=== PATIENT | female | born 1990 | race Caucasian/White ===

== ENCOUNTER 2021-08-03 08:27 | Emergency (ER) | payer OTHER, SELFPAY ==
--- NOTE | ~2021-08-03 | CT_ITS ---
EXAMINATION: CT ABDOMEN AND PELVIS WITHOUT CONTRAST CLINICAL INFORMATION: Right flank pain COMPARISON: None TECHNIQUE: Multidetector volumetric imaging was performed from the superior aspect of the liver through the pubic symphysis. Sagittal and coronal reformatted images were obtained on the technologist's workstation. This CT examination was performed using dose optimization techniques as appropriate, variously including the following: *Automated exposure control *Adjustment of mA and/or kV according to patient size (this includes techniques or standardized protocols for targeted exams where dose is matched to indication/reason for exam; i.e. extremities or head) *Use of iterative reconstruction technique DLP: 501 mGy-cm FINDINGS: LUNG BASES: The visualized lung bases are unremarkable. LIVER, GALLBLADDER, AND BILIARY TREE: The liver is normal in size, shape, and attenuation. No focal hepatic lesion or biliary ductal dilatation is present. The gallbladder is unremarkable with no evidence of radiopaque gallstones, gallbladder wall thickening, or obvious pericholecystic inflammatory changes. PANCREAS: Unremarkable. SPLEEN: Unremarkable. ADRENAL GLANDS: Unremarkable. KIDNEYS AND URETERS: There is mild right hydronephrosis. There is a small nonobstructing 1 to 2 mm right mid to lower pole renal stone. There is mild right ureteral dilatation from a 2 mm right distal ureteral stone. There is a small amount of right perinephric fluid. The left kidney is normal. BLADDER: Unremarkable. GASTROINTESTINAL TRACT: The small and large bowel are unremarkable. The appendix is unremarkable. ABDOMINAL WALL: No significant hernia is appreciated. LYMPH NODES: Normal. VASCULAR: Unremarkable. PELVIC VISCERA: Unremarkable. OSSEOUS STRUCTURES: Unremarkable. CT/CT abdomen pelvis wo con IMPRESSION: Small right renal stone. Mild right hydronephrosis and ureteral dilatation from a 2 mm right distal ureteral stone.
--- NOTE | 2021-08-03 08:42 | ED_ITS ---
HPI - Abdominal Pain General Stated Complaint: ABD PAIN Time Seen by Provider: 08/03/21 08:42 Source: patient Mode of arrival: ambulatory Limitations: no limitations History of Present Illness MD elicited complaint: abdominal pain and flank pain Pertinent past history: none Onset (ago): hour(s) (2) Pain Consistency: constant Location: R flank Severity: moderate Quality: stabbing Radiation: none Migration to: no migration Exacerbating factors: nothing Relieving factors: nothing Associated symptoms: nausea and diarrhea Treatments prior to arrival: other (tried gas x) Related Data Previous Rx's Medication Instructions Recorded morphine 15 mg immediate release 15 mg PO Q6H PRN 3 Days #12 tab 08/03/21 tablet ondansetron 4 mg disintegrating 4 mg PO Q8H PRN #20 tab 08/03/21 tablet prednisone 20 mg tablet 40 mg PO DAILY 5 Days #10 tab 08/03/21 tamsulosin 0.4 mg capsule 0.4 mg PO DAILY 5 Days #5 cap 08/03/21 Allergies Allergy/AdvReac Type Severity Reaction Status Date / Time lactose AdvReac Intermediate Abdominal Verified 08/03/21 08:54 Pain Review of Systems Review of Systems Constitutional : No Weight loss, No Fever, No Chills ENT/Mouth : No sore throat, No Rhinorrhea Eyes: No Swelling, No Redness Cardiovascular : No Chest Pain, No SOB, NoEdema Respiratory : No Cough, No Sputum, No Wheezing Gastrointestinal : Positive Nausea, no Vomiting, positive Diarrhea, positive abdominal Pain, No Hematochezia, No Melena Genitourinary : No Dysuria, No Urinary Frequency, No Hematuria, No Urgency Musculoskeletal : No joint pain, No Myalgias, No Joint Swelling Skin : No Skin Lesions, No rash Neuro : No Weakness, No Numbness, No Dizziness, No Headache Psych : No Anxiety/Panic, No Depression Heme/Lymph: No Bruising, No Lymphadenopathy Endocrine : No Polyuria, No Polydipsia All other systems reviewed and are negative. Physical Exam Vital Signs: Vital Signs: Last Vital Signs Temp 98.1 F 08/03/21 08:56 Pulse 53 08/03/21 08:56 Resp 16 08/03/21 08:56 Pulse Ox 98 08/03/21 08:56 Body Mass Index 27.1 Appearance: Alert. Oriented X3. Anxious in pain mild acute distress Eyes: Pupils equal, round and reactive to light. ENT: Pharynx normal. Neck: Normal inspection. Neck supple. CVS: Normal heart rate and rhythm. Pulses normal. Respiratory: No respiratory distress. Breath sounds normal. Abdomen: Soft and mild R flank ttp no rebound or guarding Skin: Skin warm and dry. pale skin color. Normal skin turgor. Extremities: No lower extremity edema. No calf ttp Neuro: Oriented X 3. No motor deficit. No sensory deficit. Course Course Course Narrative: feels better stable for DC MDM - Abdominal Pain MDM Narrative Medical decision making narrative: 30 yo female with lactose intolerance comes in with nausea and R flank pain - dad has hx of kidney stones, at this time labs, CT scan for renal colic ordered, UA/UPT, IVF, IV toradol and morphine for pain Lab Data Result diagrams: 08/03/21 09:09 08/03/21 09:09 Labs: Lab Results 08/03/21 08/03/21 08/03/21 Range/Units 09:09 09:09 09:09 WBC 8.7 (4.8-10.8) X10*3/uL RBC 4.23 (4.20-5.50) X10*6/uL Hgb 12.5 (12.0-16.0) g/dl Hct 37.1 (37-47) % MCV 87.7 (80-98) fL MCH 29.6 (27.0-33.0) pg MCHC 33.7 (31.0-35.0) g/dl RDW 12.8 (11.0-16.0) % Plt Count 347 (160-400) X10*3/uL MPV 9.7 (9.4-12.3) fL Immature Gran % (Auto) 0.3 (0.0-0.4) % Neut % (Auto) 79.7 H (45-73) % Lymph % (Auto) 14.7 L (20-40) % [place] % (Auto) 4.3 (2-11) % Eos % (Auto) 0.7 (0-4) % Baso % (Auto) 0.3 (0-2) % Lymph # (Auto) 1.3 (1.2-4.9) X10*3/uL [place] # (Auto) 0.4 (0.1-1.2) X10*3/uL Eos # (Auto) 0.1 (0.0-0.4) X10*3/uL Baso # (Auto) 0.0 (0.0-0.2) X10*3/uL Abs Immat Gran (auto) 0.03 (0.00-0.03) X10*3/uL Absolute Neuts (auto) 6.9 (2.0-8.3) X10*3/uL Absolute Nucleated RBC 0.000 (0.0-0.012) X10*3/uL Nucleated RBC % (auto) 0.0 (0.0-0.2) /100WBC Sodium 141 (135-145) mmol/L Potassium 3.9 (3.3-5.1) mmol/L Chloride 110 H (96-108) mmol/L Carbon Dioxide 21 L (22-29) mmol/L Anion Gap 14 (12-20) BUN 10 (9-16) mg/dL Creatinine 0.82 (0.5-1.4) mg/dL Estim Creat Clear Calc 91.7 Estimated GFR > 60 Random Glucose 116 H (60-115) mg/dL Calcium 9.4 (8.4-10.2) mg/dL Magnesium (1.6-2.6) mg/dL Total Bilirubin (0.0-1.0) mg/dL Direct Bilirubin (0.0-0.5) mg/dL AST (5-31) U/L ALT (0-31) U/L Alkaline Phosphatase (39-117) U/L Total Protein (6.5-8.0) g/dL Albumin (3.5-5.0) g/dL Lipase (8-78) U/L Urine Color Urine Appearance Urine pH (5.0-8.0) Ur Specific [place] (1.005-1.025) Urine Protein (NEG-TRACE) MG/DL Urine Glucose (UA) (NEG) MG/DL Urine Ketones (NEG) MG/DL Urine Blood (NEG) Urine Nitrite (NEG) Ur Leukocyte Esterase (NEG) Urine RBC (0) /HPF Urine WBC (0-4) /HPF Ur Squamous Epith Cells /LPF Amorphous Sediment /LPF Urine Bacteria /LPF Urine Test (NEGATIVE) COVID-19 (VAIBHAV) Negative (Negative) COVID-19 Clin Com See Note 08/03/21 08/03/21 08/03/21 Range/Units 09:09 09:09 09:09 WBC (4.8-10.8) X10*3/uL RBC (4.20-5.50) X10*6/uL Hgb (12.0-16.0) g/dl Hct (37-47) % MCV (80-98) fL MCH (27.0-33.0) pg MCHC (31.0-35.0) g/dl RDW (11.0-16.0) % Plt Count (160-400) X10*3/uL MPV (9.4-12.3) fL Immature Gran % (Auto) (0.0-0.4) % Neut % (Auto) (45-73) % Lymph % (Auto) (20-40) % [place] % (Auto) (2-11) % Eos % (Auto) (0-4) % Baso % (Auto) (0-2) % Lymph # (Auto) (1.2-4.9) X10*3/uL [place] # (Auto) (0.1-1.2) X10*3/uL Eos # (Auto) (0.0-0.4) X10*3/uL Baso # (Auto) (0.0-0.2) X10*3/uL Abs Immat Gran (auto) (0.00-0.03) X10*3/uL Absolute Neuts (auto) (2.0-8.3) X10*3/uL Absolute Nucleated RBC (0.0-0.012) X10*3/uL Nucleated RBC % (auto) (0.0-0.2) /100WBC Sodium (135-145) mmol/L Potassium (3.3-5.1) mmol/L Chloride (96-108) mmol/L Carbon Dioxide (22-29) mmol/L Anion Gap (12-20) BUN (9-16) mg/dL Creatinine (0.5-1.4) mg/dL Estim Creat Clear Calc Estimated GFR Random Glucose (60-115) mg/dL Calcium (8.4-10.2) mg/dL Magnesium 1.8 (1.6-2.6) mg/dL Total Bilirubin 0.4 (0.0-1.0) mg/dL Direct Bilirubin < 0.2 (0.0-0.5) mg/dL AST 18 (5-31) U/L ALT 16 (0-31) U/L Alkaline Phosphatase 45 (39-117) U/L Total Protein 6.6 (6.5-8.0) g/dL Albumin 4.2 (3.5-5.0) g/dL Lipase 24 (8-78) U/L Urine Color YELLOW Urine Appearance CLEAR Urine pH 6.5 (5.0-8.0) Ur Specific [place] 1.025 (1.005-1.025) Urine Protein TRACE (NEG-TRACE) MG/DL Urine Glucose (UA) NEG (NEG) MG/DL Urine Ketones NEG (NEG) MG/DL Urine Blood 3+ H (NEG) Urine Nitrite NEG (NEG) Ur Leukocyte Esterase NEG (NEG) Urine RBC 15-29 H (0) /HPF Urine WBC 0-2 (0-4) /HPF Ur Squamous Epith Cells 2+ /LPF Amorphous Sediment 1+ /LPF Urine Bacteria NONE /LPF Urine Test NEGATIVE (NEGATIVE) COVID-19 (VAIBHAV) (Negative) COVID-19 Clin Com Discharge Plan Discharge Clinical Impression: Ureterolithiasis Patient Disposition: Home, Self-Care Instructions: Ureteral Stones (ED) Additional Instructions: return to ED for any worsening symptoms or concerns Prescriptions: New prednisone 20 mg tablet 40 mg PO DAILY 5 Days Qty: 10 RF: 0 tamsulosin 0.4 mg capsule 0.4 mg PO DAILY 5 Days Qty: 5 RF: 0 morphine 15 mg tablet 15 mg PO Q6H PRN (Reason: pain) 3 Days Qty: 12 RF: 0 ondansetron 4 mg tablet,disintegrating 4 mg PO Q8H PRN (Reason: nausea and vomiting) Qty: 20 RF: 0 Referrals: Torrey Ocampo MD [Physician] - 3 days Stand Alone Forms: Work/School Release [facility] Past Medical History Attestation statement: The following information was validated with the patient. Medical History (Updated 08/03/21 @ 11:21 by Natalie Barron DO) Asthma Lactose intolerance Social History Social History (Updated 08/03/21 @ 08:57 by Natalie Barron DO) Patient Tobacco Use Status: Never used Tobacco Use of substances other than those prescribed or required for medical reasons: No Advance Directives: No
[2021-08-03 08:56] VITALS: PULSE 53; RESP 16; TEMP 36.7; O2SAT 98; BMI 27.1
[2021-08-03] MEDS: Ketorolac Tromethamine 15 MG/ML VIAL IVPUSH (09:13)
[2021-08-03 09:14] LABS: MANUAL DIFF FLAG NO
[2021-08-03] MEDS: ondansetron HCL 4 MG/2 ML VIAL IVPUSH (09:14)
[2021-08-03] MEDS: Morphine Sulfate 4 MG/ML CARTRIDGE IVPUSH (09:14)
[2021-08-03] MEDS: 0.9 % Sodium Chloride 1,000 ML 999 ML IVCONT (09:14)
[2021-08-03 09:16] LABS: Basophils Percent Auto 0.3 % (0-2); Eosinophils Absolute Auto 0.1 X10*3/uL (0.0-0.4); Eosinophils Percent Auto 0.7 % (0-4); Hematocrit 37.1 % (37-47); Hemoglobin 12.5 g/dl (12.0-16.0); Imm Gran Abs Auto 0.03 X10*3/uL (0.00-0.03); Imm Gran Pct Auto 0.3 % (0.0-0.4); Lymphocytes Absolute Auto 1.3 X10*3/uL (1.2-4.9); Lymphocytes Percent Auto 14.7 % (20-40); Mean Corpuscular HGB Conc 33.7 g/dl (31.0-35.0); Mean Corpuscular Hemoglobin 29.6 pg (27.0-33.0); Mean Corpuscular Volume 87.7 fL (80-98); Mean Platelet Volume 9.7 fL (9.4-12.3); Monocytes Absolute Auto 0.4 X10*3/uL (0.1-1.2); Monocytes Percent Auto 4.3 % (2-11); Neutrophils Absolute Auto 6.9 X10*3/uL (2.0-8.3); Neutrophils Percent Auto 79.7 % (45-73); Platelet Count 347 X10*3/uL (160-400); Red Blood Count 4.23 X10*6/uL (4.20-5.50); Red Cell Distribution Width 12.8 % (11.0-16.0); White Blood Count 8.7 X10*3/uL (4.8-10.8)
[2021-08-03 09:22] LABS: Appearance Urine CLEAR; Color Urine YELLOW; Glucose Urine UA NEG (NEG); PH 6.5 (5.0-8.0); UPreg QC Valid YES; Urine Pregnancy NEGATIVE (NEGATIVE)
[2021-08-03 09:23] LABS: Leukocyte Esterase Urine NEG (NEG); Nitrite Urine NEG (NEG); Specific Gravity - Urine 1.025 (1.005-1.025); UACC Culture Trigger NO; Urine Blood 3+ (NEG); Urine Ketones NEG (NEG); Urine Protein TRACE MG/DL (NEG-TRACE)
[2021-08-03 09:27] LABS: WBC Urine 0-2 /HPF (0-4)
[2021-08-03 09:28] LABS: Amorphous Sediment Urine 1+ /LPF; Squamous Epithelial Cell Urine 2+ /LPF
[2021-08-03 09:32] LABS: Anion Gap 14 (12-20); Blood Urea Nitrogen 10 mg/dL (9-16); COVID-19 Test Negative (Negative); Calcium 9.4 mg/dL (8.4-10.2); Carbon Dioxide 21 mmol/L (22-29); Chloride 110 mmol/L (96-108); Creatinine Clr Calc Pharmacy 91.7; Estimated Glomerular Filt Rate > 60; Glucose Random 116 mg/dL (60-115); Potassium 3.9 mmol/L (3.3-5.1); Sodium 141 mmol/L (135-145)
[2021-08-03 09:34] LABS: Alanine Aminotransferase 16 U/L (0-31); Albumin Level 4.2 g/dL (3.5-5.0); Alkaline Phosphatase 45 U/L (39-117); Aspartate Amino Transferase 18 U/L (5-31); Bilirubin Direct < 0.2 mg/dL (0.0-0.5); Bilirubin Total 0.4 mg/dL (0.0-1.0); Lipase 24 U/L (8-78); Magnesium 1.8 mg/dL (1.6-2.6); Total Protein 6.6 g/dL (6.5-8.0)
[2021-08-03 10:55] VITALS: PULSE 53; RESP 16; TEMP 36.7
[2021-08-03] MEDS: Tamsulosin HCL 0.4 MG CAPSULE PO (11:53)
[2021-08-03] MEDS: methylPREDNISolone Sod Succ 125 MG/2 ML VIAL 60 MG IVPUSH (11:53)
[2021-08-03 12:00] VITALS: BP 124/66; PULSE 53
== END 2021-08-03 12:03 | disposition home or self-care (01) ==
PROVIDERS: Emergency Provider Emergency Medicine
DX: N20.1 Calculus of ureter (principal); R10.9 Unspecified abdominal pain; Z20.822 Contact with and (suspected) exposure to COVID-19; Z79.899 Other long term (current) drug therapy
CPT/HCPCS: 36415; 74176; 80048; 80076; 81001; 81025; 83690; 83735; 85025; 87635; 96361; 96374; 96375; 99284; J1885; J2270; J2405; J2930

== ENCOUNTER 2021-08-24 21:39 | Emergency (ER) | payer OTHER, SELFPAY ==
--- NOTE | ~2021-08-24 | CT_ITS ---
EXAMINATION: CT ABDOMEN AND PELVIS WITHOUT CONTRAST CLINICAL INFORMATION: Right flank pain. COMPARISON: CT abdomen/pelvis dated from 08/03/2021. TECHNIQUE: Multidetector volumetric imaging was performed from the superior aspect of the liver through the pubic symphysis. Sagittal and coronal reformatted images were obtained on the technologist's workstation. This CT examination was performed using dose optimization techniques as appropriate, variously including the following: *Automated exposure control *Adjustment of mA and/or kV according to patient size (this includes techniques or standardized protocols for targeted exams where dose is matched to indication/reason for exam; i.e. extremities or head) *Use of iterative reconstruction technique DLP: 491 mGy-cm FINDINGS: LUNG BASES: The visualized lung bases are unremarkable. LIVER, GALLBLADDER, AND BILIARY TREE: The liver is normal in size, shape, and attenuation. No focal hepatic lesion or biliary ductal dilatation is present. The gallbladder is unremarkable with no evidence of radiopaque gallstones, gallbladder wall thickening, or obvious pericholecystic inflammatory changes. PANCREAS: Unremarkable. SPLEEN: Unremarkable. ADRENAL GLANDS: Unremarkable. KIDNEYS AND URETERS: Redemonstration of a 2 mm stone in the distal right ureter (79:3) with unchanged mild right hydroureteronephrosis. A punctate stone in the mid pole the right kidney is less apparent in this study (50:7). Again noted is a subtle hypodensity in the lateral surface of the mid pole the right kidney (49:7) which statistically is likely to represent a simple cyst. No new renal calculi. No left hydronephrosis. No perinephric fat stranding. BLADDER: Underdistended and therefore suboptimally evaluated. GASTROINTESTINAL TRACT: The small and large bowel are unremarkable. The appendix is unremarkable. ABDOMINAL WALL: No significant hernia is appreciated. LYMPH NODES: No lymphadenopathy. VASCULAR: Unremarkable. PELVIC VISCERA: Unremarkable. OSSEOUS STRUCTURES: No acute or aggressive osseous abnormalities. CT/CT abdomen pelvis wo con IMPRESSION: Unchanged mild right hydronephrosis from a stable 2 mm right distal ureteral stone. A punctate stone in the mid pole of the right kidney is also unchanged.
[2021-08-24 22:12] VITALS: BP 131/52; PULSE 88; RESP 18; TEMP 36.9; O2SAT 100; BMI 28.2
[2021-08-24 23:27] LABS: Basophils Percent Auto 0.5 % (0-2); Eosinophils Absolute Auto 0.1 X10*3/uL (0.0-0.4); Eosinophils Percent Auto 1.8 % (0-4); Hematocrit 37.9 % (37-47); Hemoglobin 12.5 g/dl (12.0-16.0); Imm Gran Abs Auto 0.02 X10*3/uL (0.00-0.03); Imm Gran Pct Auto 0.3 % (0.0-0.4); Lymphocytes Absolute Auto 1.6 X10*3/uL (1.2-4.9); Lymphocytes Percent Auto 20.3 % (20-40); MANUAL DIFF FLAG NO; Mean Corpuscular Hemoglobin 29.3 pg (27.0-33.0); Mean Platelet Volume 9.7 fL (9.4-12.3); Monocytes Absolute Auto 0.5 X10*3/uL (0.1-1.2); Monocytes Percent Auto 6.3 % (2-11); Neutrophils Absolute Auto 5.6 X10*3/uL (2.0-8.3); Neutrophils Percent Auto 70.8 % (45-73); Platelet Count 342 X10*3/uL (160-400); Red Blood Count 4.26 X10*6/uL (4.20-5.50); Red Cell Distribution Width 12.8 % (11.0-16.0); White Blood Count 7.9 X10*3/uL (4.8-10.8)
[2021-08-24 23:31] LABS: Appearance Urine CLEAR; Color Urine STRAW; Glucose Urine UA NEG (NEG); Leukocyte Esterase Urine NEG (NEG); Nitrite Urine NEG (NEG); Specific Gravity - Urine <= 1.005 (1.005-1.025); UACC Culture Trigger NO; UPreg QC Valid YES; Urine Blood 1+ (NEG); Urine Ketones NEG (NEG); Urine Pregnancy NEGATIVE (NEGATIVE); Urine Protein NEG (NEG-TRACE)
--- NOTE | 2021-08-24 23:36 | ED_ITS ---
HPI - Female Genitourinary General Chief complaint: Urogenital-Female Stated complaint: Vaginal discomfort Time Seen by Provider: 08/24/21 23:34 History of Present Illness HPI Narrative: Patient is a 30-year-old female presented today with having pain on urination. Pain in the right flank area. Similar to previous bouts of kidney stone. Patient had a diagnosis of kidney stone on August 03. Has not been able to trap the stone. She was told she had a small stone that is distal. She is given Flomax pain medication. Was initially getting better. Over the last 24 hours been having pain again. Also noted burning sensation when she urinates. Patient claims she has not been sexually active in the last month. Her menstruation has been regular. She did not miss her menstruation. No vomiting. No diarrhea. No bloody stool. Patient is from home. Related Data Previous Rx's Medication Instructions Recorded morphine 15 mg immediate release 15 mg PO Q6H PRN 3 Days #12 tab 08/03/21 tablet ondansetron 4 mg disintegrating 4 mg PO Q8H PRN #20 tab 08/03/21 tablet prednisone 20 mg tablet 40 mg PO DAILY 5 Days #10 tab 08/03/21 tamsulosin 0.4 mg capsule 0.4 mg PO DAILY 5 Days #5 cap 08/03/21 Allergies Allergy/AdvReac Type Severity Reaction Status Date / Time lactose AdvReac Intermediate Abdominal Verified 08/03/21 08:54 Pain Review of Systems Review of Systems: No fever no chills no chest pain or shortness breath no diaphoresis No cough no congestion or upper respiratory symptoms All system review otherwise negative [facility] Past Medical History Medical History Asthma Lactose intolerance Social History Social History Patient Tobacco Use Status: Never used Tobacco Use of substances other than those prescribed or required for medical reasons: No Advance Directives: No Patient : No Physical Exam Vital Signs: Vital Signs: Last Vital Signs Temp 98.4 F 08/24/21 22:12 Pulse 88 08/24/21 22:12 Resp 18 08/24/21 22:12 BP 131/52 L 08/24/21 22:12 Pulse Ox 100 08/24/21 22:12 Body Mass Index 28.2 Appearance: Alert. Oriented X3. No acute distress. Eyes: Pupils equal, round and reactive to light. ENT: Pharynx normal. Neck: Normal inspection. Neck supple. No lymph nodes noted. No crepitus CVS: Normal heart rate and rhythm. Pulses normal. Normal S1 and S2 Respiratory: No respiratory distress. Breath sounds normal. No Wheezing. No rales Abdomen: Soft and nontender. No rigidity. No distention. good BS x4 Skin: Skin warm and dry. Normal skin color. Normal skin turgor. Extremities: No lower extremity edema. Neurovascular intact to all extremities. No Lacerations. No Rash Neuro: Oriented X 3. No motor deficit. No sensory deficit. Moving all extermities. No slurred speech MDM - Female Genitourinary MDM Narrative Medical decision making narrative: Urine showed no gross evidence of infection. test was negative. Electrolytes were normal. Repeat CT scan was done as patient continued to have flank pain. The CT showed a 2 mm stone distal almost in the same location in the right ureter. Likely causing patient's symptoms. Will have patient try Motrin again. Close follow-up with Urology this time. Explained to patient risk of losing her kidney if it continued to be blocked. She needs close follow-up with Urology. This kidney stone has not moved since August 03. She is currently in stable condition pain is controlled. Kidney function is normal. No urinary tract infection. In stable condition. Medical Records Attestation: I reviewed the patient's medical records. Lab Data Attestation: I reviewed the patient's lab results. Result diagrams: 08/24/21 23:23 08/24/21 23:22 Labs: Lab Results 08/24/21 08/24/21 08/24/21 Range/Units 22:57 22:57 23:22 WBC (4.8-10.8) X10*3/uL RBC (4.20-5.50) X10*6/uL Hgb (12.0-16.0) g/dl Hct (37-47) % MCV (80-98) fL MCH (27.0-33.0) pg MCHC (31.0-35.0) g/dl RDW (11.0-16.0) % Plt Count (160-400) X10*3/uL MPV (9.4-12.3) fL Immature Gran % (Auto) (0.0-0.4) % Neut % (Auto) (45-73) % Lymph % (Auto) (20-40) % [place] % (Auto) (2-11) % Eos % (Auto) (0-4) % Baso % (Auto) (0-2) % Lymph # (Auto) (1.2-4.9) X10*3/uL [place] # (Auto) (0.1-1.2) X10*3/uL Eos # (Auto) (0.0-0.4) X10*3/uL Baso # (Auto) (0.0-0.2) X10*3/uL Abs Immat Gran (auto) (0.00-0.03) X10*3/uL Absolute Neuts (auto) (2.0-8.3) X10*3/uL Absolute Nucleated RBC (0.0-0.012) X10*3/uL Nucleated RBC % (auto) (0.0-0.2) /100WBC Sodium 141 (135-145) mmol/L Potassium 4.2 (3.3-5.1) mmol/L Chloride 108 (96-108) mmol/L Carbon Dioxide 26 (22-29) mmol/L Anion Gap 11 L (12-20) BUN 11 (9-16) mg/dL Creatinine 0.75 (0.5-1.4) mg/dL Estim Creat Clear Calc 102.3 Estimated GFR > 60 Random Glucose 101 (60-115) mg/dL Calcium 9.9 (8.4-10.2) mg/dL Total Bilirubin 0.2 (0.0-1.0) mg/dL Direct Bilirubin < 0.2 (0.0-0.5) mg/dL AST 14 (5-31) U/L ALT 14 (0-31) U/L Alkaline Phosphatase 54 (39-117) U/L Total Protein 6.8 (6.5-8.0) g/dL Albumin 4.3 (3.5-5.0) g/dL Lipase 49 (8-78) U/L Urine Color STRAW Urine Appearance CLEAR Urine pH 6.0 (5.0-8.0) Ur Specific [place] <= 1.005 (1.005-1.025) Urine Protein NEG (NEG-TRACE) MG/DL Urine Glucose (UA) NEG (NEG) MG/DL Urine Ketones NEG (NEG) MG/DL Urine Blood 1+ H (NEG) Urine Nitrite NEG (NEG) Ur Leukocyte Esterase NEG (NEG) Urine RBC 0 (0) /HPF Urine WBC 0-2 (0-4) /HPF Ur Squamous Epith Cells 1+ /LPF Urine Bacteria NONE /LPF Urine Test NEGATIVE (NEGATIVE) 08/24/21 Range/Units 23:23 WBC 7.9 (4.8-10.8) X10*3/uL RBC 4.26 (4.20-5.50) X10*6/uL Hgb 12.5 (12.0-16.0) g/dl Hct 37.9 (37-47) % MCV 89.0 (80-98) fL MCH 29.3 (27.0-33.0) pg MCHC 33.0 (31.0-35.0) g/dl RDW 12.8 (11.0-16.0) % Plt Count 342 (160-400) X10*3/uL MPV 9.7 (9.4-12.3) fL Immature Gran % (Auto) 0.3 (0.0-0.4) % Neut % (Auto) 70.8 (45-73) % Lymph % (Auto) 20.3 (20-40) % [place] % (Auto) 6.3 (2-11) % Eos % (Auto) 1.8 (0-4) % Baso % (Auto) 0.5 (0-2) % Lymph # (Auto) 1.6 (1.2-4.9) X10*3/uL [place] # (Auto) 0.5 (0.1-1.2) X10*3/uL Eos # (Auto) 0.1 (0.0-0.4) X10*3/uL Baso # (Auto) 0.0 (0.0-0.2) X10*3/uL Abs Immat Gran (auto) 0.02 (0.00-0.03) X10*3/uL Absolute Neuts (auto) 5.6 (2.0-8.3) X10*3/uL Absolute Nucleated RBC 0.000 (0.0-0.012) X10*3/uL Nucleated RBC % (auto) 0.0 (0.0-0.2) /100WBC Sodium (135-145) mmol/L Potassium (3.3-5.1) mmol/L Chloride (96-108) mmol/L Carbon Dioxide (22-29) mmol/L Anion Gap (12-20) BUN (9-16) mg/dL Creatinine (0.5-1.4) mg/dL Estim Creat Clear Calc Estimated GFR Random Glucose (60-115) mg/dL Calcium (8.4-10.2) mg/dL Total Bilirubin (0.0-1.0) mg/dL Direct Bilirubin (0.0-0.5) mg/dL AST (5-31) U/L ALT (0-31) U/L Alkaline Phosphatase (39-117) U/L Total Protein (6.5-8.0) g/dL Albumin (3.5-5.0) g/dL Lipase (8-78) U/L Urine Color Urine Appearance Urine pH (5.0-8.0) Ur Specific [place] (1.005-1.025) Urine Protein (NEG-TRACE) MG/DL Urine Glucose (UA) (NEG) MG/DL Urine Ketones (NEG) MG/DL Urine Blood (NEG) Urine Nitrite (NEG) Ur Leukocyte Esterase (NEG) Urine RBC (0) /HPF Urine WBC (0-4) /HPF Ur Squamous Epith Cells /LPF Urine Bacteria /LPF Urine Test (NEGATIVE) Discharge Plan Discharge Clinical Impression: Renal colic Patient Disposition: Home, Self-Care Instructions: Renal Colic (ED) Prescriptions: No Action prednisone 20 mg tablet 40 mg PO DAILY 5 Days Qty: 10 RF: 0 tamsulosin 0.4 mg capsule 0.4 mg PO DAILY 5 Days Qty: 5 RF: 0 morphine 15 mg tablet 15 mg PO Q6H PRN (Reason: pain) 3 Days Qty: 12 RF: 0 ondansetron 4 mg tablet,disintegrating 4 mg PO Q8H PRN (Reason: nausea and vomiting) Qty: 20 RF: 0 Referrals: Torrey Ocampo MD [Physician] - 2 days
[2021-08-24 23:46] LABS: Alanine Aminotransferase 14 U/L (0-31); Albumin Level 4.3 g/dL (3.5-5.0); Alkaline Phosphatase 54 U/L (39-117); Anion Gap 11 (12-20); Aspartate Amino Transferase 14 U/L (5-31); Bilirubin Direct < 0.2 mg/dL (0.0-0.5); Bilirubin Total 0.2 mg/dL (0.0-1.0); Blood Urea Nitrogen 11 mg/dL (9-16); Calcium 9.9 mg/dL (8.4-10.2); Carbon Dioxide 26 mmol/L (22-29); Chloride 108 mmol/L (96-108); Creatinine Clr Calc Pharmacy 102.3; Estimated Glomerular Filt Rate > 60; Glucose Random 101 mg/dL (60-115); Lipase 49 U/L (8-78); Potassium 4.2 mmol/L (3.3-5.1); Sodium 141 mmol/L (135-145); Total Protein 6.8 g/dL (6.5-8.0)
[2021-08-24 23:50] LABS: RBC Urine 0 /HPF (0); Squamous Epithelial Cell Urine 1+ /LPF; WBC Urine 0-2 /HPF (0-4)
[2021-08-25 01:06] VITALS: BP 124/64; PULSE 74; RESP 18; TEMP 37; O2SAT 98
== END 2021-08-25 01:07 | disposition home or self-care (01) ==
PROVIDERS: Emergency Provider Emergency Medicine Emergency Medical Services
DX: N23 Unspecified renal colic (principal); R30.0 Dysuria; Z79.899 Other long term (current) drug therapy
CPT/HCPCS: 36415; 74176; 80053; 81001; 81025; 82248; 83690; 85025; 99284

== ENCOUNTER 2021-10-09 09:00 | Emergency (ER) | payer OTHER, SELFPAY ==
--- NOTE | ~2021-10-09 | XR_ITS ---
EXAMINATION: XR CHEST CLINICAL INFORMATION: Chest pain COMPARISON: None TECHNIQUE: Frontal view of the chest was obtained. FINDINGS: No significant abnormality is noted involving the heart, lungs, mediastinum, bony thorax or soft tissues. XR/XR chest 1V IMPRESSION: Unremarkable examination.
--- NOTE | 2021-10-09 09:02 | ECG_ITS ---
Test Reason : chest tightness Blood Pressure : / mmHG Vent. Rate : 081 BPM Atrial Rate : 081 BPM P-R Int : 154 ms QRS Dur : 074 ms QT Int : 358 ms P-R-T Axes : 043 032 043 degrees QTc Int : 415 ms Normal sinus rhythm with sinus arrhythmia Normal ECG No previous ECGs available Referred By: Generic ED Physician Electronically Signed By:TASH ACOSTA MD
[2021-10-09 09:40] VITALS: BP 116/71; PULSE 73; RESP 18; TEMP 36.7; O2SAT 100; BMI 28.3
[2021-10-09 10:29] VITALS: BP 130/66; PULSE 68; RESP 18; O2SAT 100
[2021-10-09 10:42] LABS: MANUAL DIFF FLAG NO
[2021-10-09 10:45] LABS: Basophils Percent Auto 0.4 % (0-2); Eosinophils Percent Auto 0.4 % (0-4); Hematocrit 39.8 % (37.0-47.0); Hemoglobin 13.2 g/dl (12.0-16.0); Imm Gran Abs Auto 0.03 X10*3/uL (0.00-0.03); Imm Gran Pct Auto 0.4 % (0.0-0.4); Lymphocytes Absolute Auto 1.3 X10*3/uL (1.2-4.9); Lymphocytes Percent Auto 16.8 % (20-40); Mean Corpuscular HGB Conc 33.2 g/dl (31.0-35.0); Mean Corpuscular Hemoglobin 29.5 pg (27.0-33.0); Mean Corpuscular Volume 88.8 fL (80.0-98.0); Mean Platelet Volume 9.5 fL (9.4-12.3); Monocytes Absolute Auto 0.4 X10*3/uL (0.1-1.2); Monocytes Percent Auto 5.6 % (2-11); Neutrophils Percent Auto 76.4 % (45-73); Platelet Count 330 X10*3/uL (160-400); Red Blood Count 4.48 X10*6/uL (4.20-5.50); Red Cell Distribution Width 12.2 % (11.0-16.0); White Blood Count 7.8 X10*3/uL (4.8-10.8)
[2021-10-09 10:58] LABS: Anion Gap 15 (12-20); Blood Urea Nitrogen 9 mg/dL (9-16); Calcium 9.8 mg/dL (8.4-10.2); Carbon Dioxide 23 mmol/L (22-29); Chloride 106 mmol/L (96-108); Creatinine Clr Calc Pharmacy 99.9; Estimated Glomerular Filt Rate > 60; Glucose Random 93 mg/dL (60-115); Potassium 4.5 mmol/L (3.3-5.1); Sodium 139 mmol/L (135-145)
[2021-10-09 11:02] LABS: COVID-19 Test Negative (Negative); IDNOW Serial# 9DD0AD1C
[2021-10-09 11:05] LABS: Troponin-I High Sensitivity < 3.5 ng/L (<3.5-17.0)
[2021-10-09 11:27] VITALS: PULSE 66; RESP 18; O2SAT 100
--- NOTE | 2021-10-09 11:30 | ED_ITS ---
HPI - Chest Pain General Chief Complaint: Chest Pain Stated Complaint: chest tightness, dizziness, cough, diff breathing Time Seen by Provider: 10/09/21 11:30 Source: patient Mode of arrival: ambulatory Limitations: no limitations History of Present Illness HPI narrative: 30-year-old female who presents emergency department for evaluation of chest pain, headache, dizziness and numbness in her lower extremities. The patient states that she developed chest pain last night. She states the pain came on gradually and she was having the pain on off throughout the evening making it hard for her to sleep. She states that this morning at 7:30 a.m. when she woke up she had a constant pain in her chest. She points to her anterior chest when asked to localize the pain. The pain is 8/10 at its worst. The pain is worse with movement , breathing and with pushing on her chest. She states she feels slightly short of breath at rest but has no dyspnea on exertion. She states that she has a pressure-like pain in her head which is [id number] in intensity, constant with no associated nausea, vomiting, fever, chills, rhinorrhea. She states that she has an occasional cough which is nonproductive. She is also complaining of a numbness in her both lower extremities which she describes as a ?constant nerve pain . The patient states that she took an antacid at home with no relief for symptoms. She did not take any other medications. Related Data Previous Rx's Medication Instructions Recorded morphine 15 mg immediate release 15 mg PO Q6H PRN 3 Days #12 tab 08/03/21 tablet ondansetron 4 mg disintegrating 4 mg PO Q8H PRN #20 tab 08/03/21 tablet prednisone 20 mg tablet 40 mg PO DAILY 5 Days #10 tab 08/03/21 tamsulosin 0.4 mg capsule 0.4 mg PO DAILY 5 Days #5 cap 08/03/21 Allergies Allergy/AdvReac Type Severity Reaction Status Date / Time lactose AdvReac Intermediate Abdominal Verified 09/07/21 15:44 Pain Review of Systems Review of Systems: Yes all other systems are reviewed and are negative [facility] Past Medical History [facility] Narrative: Social history: The patient denies tobacco use. She denies alcohol use. She denies drug use. Medical History Asthma Lactose intolerance Renal calculi Social History Social History Patient Tobacco Use Status: Never used Tobacco Advance Directives: No Physical Exam Vital Signs: Vital Signs: Last Vital Signs Temp 98.1 F 10/09/21 09:40 Pulse 66 10/09/21 11:27 Resp 18 10/09/21 11:27 BP 130/66 10/09/21 10:29 Pulse Ox 100 10/09/21 11:27 Body Mass Index 28.3 Const: General: cooperative and no acute distress Orientation/consciousness: oriented to person and oriented to place Limitations: no limitations HENMT: Head: Yes normal to inspection, Yes normocephalic and Yes atraumatic Ears: external ears normal General nose exam: Normal external nose present Face and sinus: Yes normal facial exam Mouth: Normal oral and palatal mucosa present Throat: Yes posterior oropharynx normal Eyes: General: appearance normal, both eyes and all related structures Pupils: Equal, round and reactive pupils present Neck: Neck: Yes normal visual inspection, Yes no lymphadenopathy, Yes trachea midline and Yes supple Chest: Chest palpation & inspection: normal inspection of the chest and tenderness sternum and costochondral junction (Bilateral) Resp: Effort & Inspection: normal respiratory effort and able to speak in complete sentences Auscultation: clear to auscultation bilaterally Cardio: Rate: regular rate Rhythm: regular rhythm Heart sounds: S1 normal heart sound present, S2 normal heart sound present and no murmurs GI: Inspection: Yes normal to inspection Palpation (GI): Soft to palpation, nontender and no guarding Auscultation: normal bowel sounds : General: Yes no CVA tenderness Back/Spine/Pelvis: Back: no CVA tenderness Skin: General skin exam: no rashes or lesions noted Neuro: General: oriented to person and oriented to place Cranial nerves: Yes CN's II-XII intact bilaterally and Yes Equal, round and reactive pupils present Cognition (Neuro): normal cognition Motor exam (neuro): 5/5 motor strength present throughout Extrem: General: Yes normal to inspection Psych: Appearance: grossly normal Speech and movement: Normal speech and movement present Affect: normal affect Attitude: cooperative Thought process: Normal thought process present Thought content: Normal thought content present Course Course Course Narrative: 30-year-old female who presents emergency department for evaluation of chest pain which began last night, initially the pain was intermittent but became constant this morning. The pain is a tightness in her anterior chest which is worse with movement, breathing and pushing on her chest. Vital signs were normal including an O2 saturation of 100% on room air. Physical examination did reveal tenderness palpation of her sternum and costochondral joints bilaterally. Laboratory evaluation was unremarkable with a normal CBC, BMP, and nondetectable high sensitivity troponin I. Chest x-ray revealed no acute abnormalities and 12 EKG was unremarkable. Patient's presentation is consistent with acute costochondritis most likely secondary to a viral infection. Patient was started on ibuprofen and Tylenol for pain. She was given verbal and printed instructions and discharged home. MDM - Chest Pain Lab Data Result diagrams: 10/09/21 10:37 10/09/21 10:37 Labs: Lab Results 10/09/21 10/09/21 10/09/21 Range/Units 10:37 10:37 10:37 WBC 7.8 (4.8-10.8) X10*3/uL RBC 4.48 (4.20-5.50) X10*6/uL Hgb 13.2 (12.0-16.0) g/dl Hct 39.8 (37.0-47.0) % MCV 88.8 (80.0-98.0) fL MCH 29.5 (27.0-33.0) pg MCHC 33.2 (31.0-35.0) g/dl RDW 12.2 (11.0-16.0) % Plt Count 330 (160-400) X10*3/uL MPV 9.5 (9.4-12.3) fL Immature Gran % (Auto) 0.4 (0.0-0.4) % Neut % (Auto) 76.4 H (45-73) % Lymph % (Auto) 16.8 L (20-40) % [place] % (Auto) 5.6 (2-11) % Eos % (Auto) 0.4 (0-4) % Baso % (Auto) 0.4 (0-2) % Lymph # (Auto) 1.3 (1.2-4.9) X10*3/uL [place] # (Auto) 0.4 (0.1-1.2) X10*3/uL Eos # (Auto) 0.0 (0.0-0.4) X10*3/uL Baso # (Auto) 0.0 (0.0-0.2) X10*3/uL Abs Immat Gran (auto) 0.03 (0.00-0.03) X10*3/uL Absolute Neuts (auto) 6.0 (2.0-8.3) x10*3/uL Absolute Nucleated RBC 0.000 (0.0-0.012) X10*3/uL Nucleated RBC % (auto) 0.0 (0.0-0.2) /100WBC Sodium 139 (135-145) mmol/L Potassium 4.5 (3.3-5.1) mmol/L Chloride 106 (96-108) mmol/L Carbon Dioxide 23 (22-29) mmol/L Anion Gap 15 (12-20) BUN 9 (9-16) mg/dL Creatinine 0.77 (0.5-1.4) mg/dL Estim Creat Clear Calc 99.9 Estimated GFR > 60 Random Glucose 93 (60-115) mg/dL Calcium 9.8 (8.4-10.2) mg/dL Troponin I High Sens < 3.5 (<3.5-17.0) ng/L COVID-19 (VAIBHAV) (Negative) COVID-19 Clin Com 10/09/21 Range/Units 10:37 WBC (4.8-10.8) X10*3/uL RBC (4.20-5.50) X10*6/uL Hgb (12.0-16.0) g/dl Hct (37.0-47.0) % MCV (80.0-98.0) fL MCH (27.0-33.0) pg MCHC (31.0-35.0) g/dl RDW (11.0-16.0) % Plt Count (160-400) X10*3/uL MPV (9.4-12.3) fL Immature Gran % (Auto) (0.0-0.4) % Neut % (Auto) (45-73) % Lymph % (Auto) (20-40) % [place] % (Auto) (2-11) % Eos % (Auto) (0-4) % Baso % (Auto) (0-2) % Lymph # (Auto) (1.2-4.9) X10*3/uL [place] # (Auto) (0.1-1.2) X10*3/uL Eos # (Auto) (0.0-0.4) X10*3/uL Baso # (Auto) (0.0-0.2) X10*3/uL Abs Immat Gran (auto) (0.00-0.03) X10*3/uL Absolute Neuts (auto) (2.0-8.3) x10*3/uL Absolute Nucleated RBC (0.0-0.012) X10*3/uL Nucleated RBC % (auto) (0.0-0.2) /100WBC Sodium (135-145) mmol/L Potassium (3.3-5.1) mmol/L Chloride (96-108) mmol/L Carbon Dioxide (22-29) mmol/L Anion Gap (12-20) BUN (9-16) mg/dL Creatinine (0.5-1.4) mg/dL Estim Creat Clear Calc Estimated GFR Random Glucose (60-115) mg/dL Calcium (8.4-10.2) mg/dL Troponin I High Sens (<3.5-17.0) ng/L COVID-19 (VAIBHAV) Negative (Negative) COVID-19 Clin Com See Note ECG Data ECG #1: Attestation: I personally reviewed and interpreted this ECG as follows: Interpretation: 0923: Sinus rhythm with sinus arrhythmia with a rate of 81, normal MN interval, QRS duration and QTC interval. No ST segment elevation. No ST segment depression. No T-wave abnormalities. No PACs. No PVCs. Discharge Plan Discharge Clinical Impression: Acute costochondritis Patient Disposition: Home, Self-Care Instructions: Costochondritis (ED) Additional Instructions: Your complete blood count and basic metabolic panel were normal. Your troponin was not detectable, this is reassuring suggesting that you have had no heart injury is the cause of your pain. Your chest x-ray revealed no evidence of pneumonia or a popped lung (pneumothorax). Your EKG was normal. You did have tenderness with palpation of the joints of your chest suggesting these joints are inflamed (costochondritis). The treatment for costochondritis is to take an anti-inflammatory pain medication for 4 days. Take ibuprofen 200 mg pills, 3 pills every 6 hours for 4 days and then as needed for pain. Take Tylenol (acetaminophen) 500 mg pills, 2 pills every 4 to 6 hours as needed for pain not relieved by ibuprofen. Follow-up with your doctor in 2 days. Please return to the emergency department if your symptoms get worse or if you develop any symptoms that are concerning to you. Prescriptions: No Action prednisone 20 mg tablet 40 mg PO DAILY 5 Days Qty: 10 RF: 0 tamsulosin 0.4 mg capsule 0.4 mg PO DAILY 5 Days Qty: 5 RF: 0 morphine 15 mg tablet 15 mg PO Q6H PRN (Reason: pain) 3 Days Qty: 12 RF: 0 ondansetron 4 mg tablet,disintegrating 4 mg PO Q8H PRN (Reason: nausea and vomiting) Qty: 20 RF: 0
--- NOTE | 2021-10-09 11:40 | PC.NURSE ---
nad, skin wpd, states chest wall pain, worse w deep breath,
[2021-10-09 12:06] LABS: UPreg QC Valid YES; Urine Pregnancy NEGATIVE (NEGATIVE)
[2021-10-09 12:07] LABS: Appearance Urine HAZY; Color Urine YELLOW; Glucose Urine UA NEG (NEG); Leukocyte Esterase Urine 2+ (NEG); Nitrite Urine NEG (NEG); Specific Gravity - Urine 1.015 (1.005-1.025); UACC Culture Trigger YES; Urine Blood TRACE (NEG); Urine Ketones 40 MG/DL (NEG); Urine Protein NEG (NEG-TRACE)
[2021-10-09 12:55] LABS: Squamous Epithelial Cell Urine 2+ /LPF
[2021-10-09 12:57] LABS: RBC Urine 0-2 /HPF (0)
[2021-10-09 12:58] LABS: Bacteria Urine TRACE /LPF
== END 2021-10-09 12:19 | disposition home or self-care (01) ==
PROVIDERS: Emergency Provider Emergency Medicine Emergency Medical Services; PCP Physician Assistant Medical
DX: M94.0 Chondrocostal junction syndrome [Tietze] (principal); R42 Dizziness and giddiness; R20.0 Anesthesia of skin; Z20.822 Contact with and (suspected) exposure to COVID-19; Z79.899 Other long term (current) drug therapy
CPT/HCPCS: 36415; 71045; 80048; 81001; 81025; 84484; 85025; 87086; 87635; 93005; 99283; 99284

== ENCOUNTER 2022-04-18 21:44 | Emergency (ER) | payer OTHER, SELFPAY ==
--- NOTE | 2022-04-18 | ECG_ITS ---
Test Reason : CHEST PAIN Blood Pressure : / mmHG Vent. Rate : 073 BPM Atrial Rate : 073 BPM P-R Int : 152 ms QRS Dur : 078 ms QT Int : 370 ms P-R-T Axes : 034 034 043 degrees QTc Int : 407 ms Normal sinus rhythm with sinus arrhythmia Normal ECG When compared with ECG of 09-OCT-2021 09:23, No significant change was found Referred By: Generic ED Physician Electronically Signed By:Jorje Finney
--- NOTE | ~2022-04-18 | XR_ITS ---
EXAMINATION: XR CHEST CLINICAL INFORMATION: Cough COMPARISON: 10/09/2021 TECHNIQUE: Frontal view of the chest was obtained. FINDINGS: Clear lungs. No consolidation, pneumothorax, or pleural effusion. Cardiac and mediastinal contours are normal. Pulmonary vasculature is unremarkable. No acute osseous findings. XR/XR chest 1V IMPRESSION: Normal chest radiographs
[2022-04-18 22:06] VITALS: BP 148/78; PULSE 85; RESP 18; TEMP 37.1; O2SAT 100; BMI 26.6
[2022-04-19 01:50] LABS: COVID-19 Test Negative (Negative); IDNOW Serial# 08D9AD1C; Influenza A Negative (Negative); Influenza B2 Negative (Negative)
[2022-04-19] MEDS: Albuterol Sulfate (0.083%) 2.5 MG/3 ML VIAL.NEB 5 MG INHALE (07:04)
[2022-04-19 07:05] VITALS: PULSE 60; RESP 20; O2SAT 100
--- NOTE | 2022-04-19 07:10 | ED.GENADULT ---
HPI - General Adult General Chief complaint: General Medical Stated complaint: cough Time Seen by Provider: 04/19/22 06:51 Source: patient Mode of arrival: ambulatory History of Present Illness HPI narrative: 31-year-old female with history of asthma and recent history COVID-19 infection who presents with 3 weeks of persistent, dry cough and patient states that her chest feels very tight and then she noticed that there was some ?black staff on the air conditioning unit? and then noticed that she was coughing ?black material?. She otherwise denies any fever, chills, GI or symptoms. Related Data Previous Rx's Medication Instructions Recorded morphine 15 mg immediate release 15 mg PO Q6H PRN 3 Days #12 tab 08/03/21 tablet ondansetron 4 mg disintegrating 4 mg PO Q8H PRN #20 tab 08/03/21 tablet prednisone 20 mg tablet 40 mg PO DAILY 5 Days #10 tab 08/03/21 tamsulosin 0.4 mg capsule 0.4 mg PO DAILY 5 Days #5 cap 08/03/21 benzonatate 200 mg capsule 200 mg PO TID PRN #14 cap 04/19/22 prednisone 50 mg tablet 50 mg PO DAILY 4 Days #4 tab 04/19/22 Allergies Allergy/AdvReac Type Severity Reaction Status Date / Time basil Allergy Itching Verified 04/18/22 22:06 lactose AdvReac Intermediate Abdominal Verified 04/18/22 22:05 Pain Review of Systems Review of Systems: Pertinent positives and negatives as stated in HPI 10 point review of systems is otherwise negative PMFSH Past Medical History Source: nursing notes reviewed Medical History Asthma Lactose intolerance Renal calculi Social History Social History Patient Tobacco Use Status: Never used Tobacco Advance Directives: No Advance Directives Information Provided: No Patient : No Physical Exam ED Vital Signs: Vital Signs - 24 hr 04/18/22 22:06 04/19/22 07:05 Temperature 98.7 F Pulse Rate 85 60 Respiratory Rate 18 20 Blood Pressure 148/78 H Pulse Oximetry 100 BMI result Body Mass Index 26.6 VITAL SIGNS: Reviewed. GENERAL: Well developed, well nourished, in no acute distress. HEAD: Normocephalic/atraumatic EYES: PERRLA, EOMI EARS: Ext canals without abnormality, TMs non-bulging and non-erythematous NOSE: Nares patent bilateral OROPHARYNX: no oral lesions noted, posterior pharynx clear LUNGS: Normal breath sounds, no tachypnea/wheeze/rhonchi/rales. SpO2<100> CARDIOVASCULAR: Regular rate and rhythm without noted murmurs, no JVD or lower extremity edema. ABDOMEN: Soft, non-tender, non-distended with bowel sounds. SKIN: Inspection of the skin reveals no rashes NEUROLOGIC: Alert and oriented x 4. PSYCH: Tearful Course Course Course Narrative: 31-year-old female with history and clinical presentation consistent with likely a combination of seasonal allergies with mild asthma exacerbation. Patient provided with antitussive, combination analgesics, prednisone, and albuterol. Review of imaging and viral testing there are no acute findings. Patient does have a referral to follow-up with a cloth trimmer hand. Medical Decision Making Lab Data Labs: Lab Results 04/19/22 04/19/22 Range/Units 00:59 00:59 COVID-19 (VAIBHAV) Negative (Negative) COVID-19 Clin Com See Note Influenza Type A (ALPHONSO) Negative (Negative) Influenza Type B (ALPHONSO) Negative (Negative) Influenza A & B Note See Note Discharge Plan Discharge Clinical Impression: Cough, Asthma, Seasonal allergic reaction Patient Disposition: Home, Self-Care Instructions: Loratadine (By mouth), Fluticasone (Into the nose), Asthma (ED), Allergies (ED), Acute Cough (ED) Additional Instructions: 1. Resume all home medications as prescribed. 2. Recommend [id number] seasonal allergy medications such as Flonase and/or Claritin for added asthma control. 3. Please complete the entire course steroids that you have been prescribed. 4. Please follow-up with your primary care provider and/or the cloth trimmer hand that you have been referred to. Return to the ER for worsening symptoms. Prescriptions: New benzonatate 200 mg capsule 200 mg PO TID PRN (Reason: cough) Qty: 14 0RF prednisone 50 mg tablet 50 mg PO DAILY 4 Days Qty: 4 0RF No Action prednisone 20 mg tablet 40 mg PO DAILY 5 Days Qty: 10 0RF tamsulosin 0.4 mg capsule 0.4 mg PO DAILY 5 Days Qty: 5 0RF morphine 15 mg tablet 15 mg PO Q6H PRN (Reason: pain) 3 Days Qty: 12 0RF ondansetron 4 mg tablet,disintegrating 4 mg PO Q8H PRN (Reason: nausea and vomiting) Qty: 20 0RF Referrals: Gillian Casey PA [Primary Care Provider] -
[2022-04-19] MEDS: predniSONE 10 MG TABLET 50 MG PO (07:14)
[2022-04-19] MEDS: Acetaminophen 325 MG TABLET 975 MG PO (07:15)
[2022-04-19] MEDS: Benzonatate 100 MG CAPSULE 200 MG PO (07:15)
[2022-04-19 07:17] VITALS: BP 120/61; PULSE 78; RESP 18; O2SAT 99
[2022-04-19 07:41] VITALS: PULSE 60; RESP 20; O2SAT 100
[2022-04-19] MEDS: Albuterol Sulfate 90 MCG 8 GM INHALER 4 PUFF INHALE (07:41)
[2022-04-19 08:22] LABS: IDNOW Serial# 9DB6401D
[2022-04-19 08:23] LABS: COVID-19 Test Negative (Negative)
[2022-04-19 08:27] LABS: IDNOW Serial# 55D5AD1C; Influenza A Negative (Negative); Influenza B2 Negative (Negative)
[2022-04-19 08:40] VITALS: BP 122/63; PULSE 74; RESP 17; TEMP 36.6; O2SAT 100
== END 2022-04-19 08:41 | disposition home or self-care (01) ==
PROVIDERS: Student in an Organized Health Care Education/Training Program; Emergency Provider Emergency Medicine; PCP Physician Assistant Medical
DX: J45.909 Unspecified asthma, uncomplicated (principal); R05.9 Cough, unspecified; Z20.822 Contact with and (suspected) exposure to COVID-19
CPT/HCPCS: 71045; 87502; 87635; 93005; 94640; 94664; 99284

== ENCOUNTER 2022-04-24 19:30 | Emergency (ER) | payer OTHER, SELFPAY ==
--- NOTE | ~2022-04-24 | XR_ITS ---
EXAMINATION: XR CHEST CLINICAL INFORMATION: Cough and chest pain COMPARISON: 04/19/2022 TECHNIQUE: Frontal view of the chest was obtained. FINDINGS: No significant abnormality is noted involving the heart, lungs, mediastinum, bony thorax or soft tissues. XR/XR chest 1V IMPRESSION: Normal exam
--- NOTE | 2022-04-24 19:34 | ECG_ITS ---
Test Reason : CP/SOB LIGHTHEADEDNESS/DIZY Blood Pressure : / mmHG Vent. Rate : 071 BPM Atrial Rate : 071 BPM P-R Int : 152 ms QRS Dur : 078 ms QT Int : 372 ms P-R-T Axes : 037 032 058 degrees QTc Int : 404 ms Normal sinus rhythm with sinus arrhythmia Normal ECG When compared with ECG of 18-APR-2022 22:09, No significant change was found Referred By: Generic ED Physician Electronically Signed By:AMBER HAYES MD
[2022-04-24 19:36] VITALS: BP 144/80; PULSE 86; RESP 18; TEMP 36; O2SAT 100; BMI 28.3
[2022-04-24 21:29] LABS: MANUAL DIFF FLAG NO
[2022-04-24 21:33] LABS: Basophils Absolute Auto 0.1 X10*3/uL (0.0-0.2); Basophils Percent Auto 0.5 % (0-2); Eosinophils Absolute Auto 0.1 X10*3/uL (0.0-0.4); Eosinophils Percent Auto 0.7 % (0-4); Hematocrit 37.9 % (37.0-47.0); Hemoglobin 12.5 g/dl (12.0-16.0); Imm Gran Abs Auto 0.02 X10*3/uL (0.00-0.03); Imm Gran Pct Auto 0.2 % (0.0-0.4); Lymphocytes Absolute Auto 2.4 X10*3/uL (1.2-4.9); Mean Corpuscular Hemoglobin 29.3 pg (27.0-33.0); Mean Platelet Volume 9.5 fL (9.4-12.3); Monocytes Absolute Auto 0.7 X10*3/uL (0.1-1.2); Monocytes Percent Auto 7.1 % (2-11); Neutrophils Absolute Auto 6.3 x10*3/uL (2.0-8.3); Neutrophils Percent Auto 66.5 % (45-73); Platelet Count 393 X10*3/uL (160-400); Red Blood Count 4.26 X10*6/uL (4.20-5.50); Red Cell Distribution Width 12.9 % (11.0-16.0); White Blood Count 9.6 X10*3/uL (4.8-10.8)
[2022-04-24 21:47] LABS: Alanine Aminotransferase 18 U/L (0-31); Albumin Level 4.4 g/dL (3.5-5.0); Alkaline Phosphatase 46 U/L (39-117); Anion Gap 13 (12-20); Aspartate Amino Transferase 12 U/L (5-31); Bilirubin Total 0.3 mg/dL (0.0-1.0); Blood Urea Nitrogen 10 mg/dL (9-16); Calcium 9.5 mg/dL (8.4-10.2); Carbon Dioxide 26 mmol/L (22-29); Chloride 107 mmol/L (96-108); Creatinine Clr Calc Pharmacy 89.3; Estimated Glomerular Filt Rate > 60; Glucose Random 96 mg/dL (60-115); Potassium 4.2 mmol/L (3.3-5.1); Sodium 142 mmol/L (135-145); Total Protein 7.1 g/dL (6.5-8.0)
[2022-04-24 21:51] LABS: Troponin-I High Sensitivity < 3.5 ng/L (<3.5-17.0)
[2022-04-24 21:57] LABS: COVID-19 Test Negative (Negative); IDNOW Serial# 16C4AD1C; Influenza A Negative (Negative); Influenza B2 Negative (Negative)
[2022-04-24 22:01] VITALS: BP 126/67; PULSE 69; RESP 14; O2SAT 99
[2022-04-24] MEDS: Albuterol/Iprat 2.5/0.5MG 3 ML AMPUL.NEB INHALE (22:08)
--- NOTE | 2022-04-24 22:08 | ED_ITS ---
HPI - General Adult General Chief complaint: General Medical Stated complaint: sob,coughing,dizzy,lightheaded Time Seen by Provider: 04/24/22 21:42 Source: patient Limitations: no limitations History of Present Illness HPI narrative: This is a 22-year-old female with multiple complaints for the patient started about 10 days ago with a cough and shortness of breath. The patient was seen here and treated for allergies and asthma, with an albuterol rescue inhaler, prednisone, Tessalon. The patient states that she did not feel much better with treatment. She continues to have a dry cough, sometimes productive, lightheadedness. Patient had finished her prednisone yesterday. Today she felt fatigued. She has also had some numbness and tingling in her hands and feet. She notes that when she takes a deep breath she has some discomfort in her chest. She denies any pain or swelling her legs. She is not on control pills. She is not a smoker. She denies any recent travel. Related Data Previous Rx's Medication Instructions Recorded morphine 15 mg immediate release 15 mg PO Q6H PRN 3 Days #12 tab 08/03/21 tablet ondansetron 4 mg disintegrating 4 mg PO Q8H PRN #20 tab 08/03/21 tablet prednisone 20 mg tablet 40 mg PO DAILY 5 Days #10 tab 08/03/21 tamsulosin 0.4 mg capsule 0.4 mg PO DAILY 5 Days #5 cap 08/03/21 benzonatate 200 mg capsule 200 mg PO TID PRN #14 cap 04/19/22 prednisone 50 mg tablet 50 mg PO DAILY 4 Days #4 tab 04/19/22 hydroxyzine HCl 25 mg tablet 25 mg PO TID PRN #20 tab 04/24/22 Allergies Allergy/AdvReac Type Severity Reaction Status Date / Time basil Allergy Itching Verified 04/18/22 22:06 lactose AdvReac Intermediate Abdominal Verified 04/18/22 22:05 Pain Review of Systems Review of Systems: Yes all other systems are reviewed and are negative Constitutional: Constitutional: Reports as per HPI and Denies fever(s) Eyes: Eyes: Reports as per HPI and Reports no additional eye complaints ENT: Reports system reviewed and no additional complaints, except as documented, Reports as per HPI, Denies nasal congestion, Denies nasal discharge and Denies sore throat Cardiovascular: Cardiovascular: Reports as per HPI, Reports chest pain and Reports dyspnea Respiratory: Respiratory: Reports as per HPI, Reports cough, Reports dyspnea and Reports wheezing Gastrointestinal: Gastrointestinal: Reports as per HPI, Denies abdominal pain, Denies diarrhea and Denies vomiting Musculoskeletal: Musculoskeletal: Reports no additional musculoskeletal co mplaints and Denies numbness Integumentary/Breasts: Skin/Breast: Reports as per HPI and Denies rash Neurologic: Reports as per HPI, Denies focal weakness and Denies numbness Comments: Paresthesias hands and feet Psychiatric: Psychiatric: Reports no additional psychiatric complaints and Reports as per HPI Endocrine: Endocrine: Reports no additional endocrine complaints and Reports as per HPI Hematologic/Lymphatic: Hematologic/Lymphatic: Reports no additional hematologic/lymphatic complaints, Reports as per HPI and Reports other (No peripheral edema) Allergic/Immunologic: Allergic/Immunologic: Reports wheezing PMFSH Past Medical History Medical History Asthma Lactose intolerance Renal calculi Social History Social History Alcohol intake: never Patient Tobacco Use Status: Never used Tobacco Use of substances other than those prescribed or required for medical reasons: No Advance Directives: No Advance Directives Information Provided: No Physical Exam ED Vital Signs: Vital Signs - 24 hr 04/24/22 19:36 04/24/22 22:01 04/24/22 22:09 Temperature 96.8 F Pulse Rate 86 69 67 Respiratory Rate 18 14 16 Blood Pressure 144/80 H 126/67 Pulse Oximetry 100 99 BMI result Body Mass Index 28.3 Const Other: Patient appears mildly anxious, depressed affect, slightly tearful General: no acute distress Orientation/consciousness: patient oriented x3 HENMT Head: Yes normal to inspection General nose exam: Normal external nose present Mouth: moist mucous membranes Throat: Yes posterior oropharynx normal, Yes tonsils normal and Yes uvula midline Eyes Eyelids: Yes eyelids normal Conjunctivae: conjunctivae normal Pupils: Equal, round and reactive pupils present Neck Neck: Yes supple Resp Effort & Inspection: normal respiratory effort Auscultation: clear to auscultation bilaterally Cardio Rate: regular rate Rhythm: regular rhythm Heart sounds: S1 normal heart sound present, S2 normal heart sound present, no gallops, no murmurs and no rubs GI Inspection: No distended Palpation (GI): Soft to palpation and nontender Auscultation: normal bowel sounds Skin General skin exam: other (Warm and dry) Neuro General: patient oriented x3 and CN's II-XI intact bilaterally Cranial nerves: Yes Equal, round and reactive pupils present Extrem General: Yes no pedal edema Psych Affect: normal affect Attitude: cooperative Medical Decision Making MDM Narrative Medical decision making narrative: Patient with a persistent cough, also now with dizziness, tingling in her hands, discomfort upon taking a deep breath, fatigue. Patient has a depressed affect. No objective evidence of any acute pathology upon extensive workup. Patient had clear lungs, did have a frequent shallow dry cough. EKG was normal. D-dimer was not elevated. Chest x-ray negative. COVID negative. Patient has been treated with albuterol and prednisone without improvement. Patient does have follow-up with a pathology secretary/transcriptionist in 4 days. Patient appears to have an element of anxiety/depression contributing to her presentation Lab Data Result diagrams: 04/24/22 21:19 04/24/22 21:19 Labs: Lab Results 04/24/22 04/24/22 04/24/22 Range/Units 21:19 21:19 21:19 WBC 9.6 (4.8-10.8) X10*3/uL RBC 4.26 (4.20-5.50) X10*6/uL Hgb 12.5 (12.0-16.0) g/dl Hct 37.9 (37.0-47.0) % MCV 89.0 (80.0-98.0) fL MCH 29.3 (27.0-33.0) pg MCHC 33.0 (31.0-35.0) g/dl RDW 12.9 (11.0-16.0) % Plt Count 393 (160-400) X10*3/uL MPV 9.5 (9.4-12.3) fL Immature Gran % (Auto) 0.2 (0.0-0.4) % Neut % (Auto) 66.5 (45-73) % Lymph % (Auto) 25.0 (20-40) % [place] % (Auto) 7.1 (2-11) % Eos % (Auto) 0.7 (0-4) % Baso % (Auto) 0.5 (0-2) % Lymph # (Auto) 2.4 (1.2-4.9) X10*3/uL [place] # (Auto) 0.7 (0.1-1.2) X10*3/uL Eos # (Auto) 0.1 (0.0-0.4) X10*3/uL Baso # (Auto) 0.1 (0.0-0.2) X10*3/uL Abs Immat Gran (auto) 0.02 (0.00-0.03) X10*3/uL Absolute Neuts (auto) 6.3 (2.0-8.3) x10*3/uL Absolute Nucleated RBC 0.000 (0.0-0.012) X10*3/uL Nucleated RBC % (auto) 0.0 (0.0-0.2) /100WBC D-Dimer High Sensitivty NG/ML Sodium (135-145) mmol/L Potassium (3.3-5.1) mmol/L Chloride (96-108) mmol/L Carbon Dioxide (22-29) mmol/L Anion Gap (12-20) BUN (9-16) mg/dL Creatinine (0.5-1.4) mg/dL Estim Creat Clear Calc Estimated GFR Random Glucose (60-115) mg/dL Calcium (8.4-10.2) mg/dL Total Bilirubin (0.0-1.0) mg/dL AST (5-31) U/L ALT (0-31) U/L Alkaline Phosphatase (39-117) U/L Troponin I High Sens < 3.5 (<3.5-17.0) ng/L Total Protein (6.5-8.0) g/dL Albumin (3.5-5.0) g/dL COVID-19 ([facility]IBHAV) (Negative) COVID-19 Clin Com Influenza Type A (ALPHONSO) Negative (Negative) Influenza Type B (ALPHONSO) Negative (Negative) Influenza A & B Note See Note 04/24/22 04/24/22 04/24/22 Range/Units 21:19 21:19 22:10 WBC (4.8-10.8) X10*3/uL RBC (4.20-5.50) X10*6/uL Hgb (12.0-16.0) g/dl Hct (37.0-47.0) % MCV (80.0-98.0) fL MCH (27.0-33.0) pg MCHC (31.0-35.0) g/dl RDW (11.0-16.0) % Plt Count (160-400) X10*3/uL MPV (9.4-12.3) fL Immature Gran % (Auto) (0.0-0.4) % Neut % (Auto) (45-73) % Lymph % (Auto) (20-40) % [place] % (Auto) (2-11) % Eos % (Auto) (0-4) % Baso % (Auto) (0-2) % Lymph # (Auto) (1.2-4.9) X10*3/uL [place] # (Auto) (0.1-1.2) X10*3/uL Eos # (Auto) (0.0-0.4) X10*3/uL Baso # (Auto) (0.0-0.2) X10*3/uL Abs Immat Gran (auto) (0.00-0.03) X10*3/uL Absolute Neuts (auto) (2.0-8.3) x10*3/uL Absolute Nucleated RBC (0.0-0.012) X10*3/uL Nucleated RBC % (auto) (0.0-0.2) /100WBC D-Dimer High Sensitivty < 150 NG/ML Sodium 142 (135-145) mmol/L Potassium 4.2 (3.3-5.1) mmol/L Chloride 107 (96-108) mmol/L Carbon Dioxide 26 (22-29) mmol/L Anion Gap 13 (12-20) BUN 10 (9-16) mg/dL Creatinine 0.82 (0.5-1.4) mg/dL Estim Creat Clear Calc 89.3 Estimated GFR > 60 Random Glucose 96 (60-115) mg/dL Calcium 9.5 (8.4-10.2) mg/dL Total Bilirubin 0.3 (0.0-1.0) mg/dL AST 12 (5-31) U/L ALT 18 (0-31) U/L Alkaline Phosphatase 46 (39-117) U/L Troponin I High Sens (<3.5-17.0) ng/L Total Protein 7.1 (6.5-8.0) g/dL Albumin 4.4 (3.5-5.0) g/dL COVID-19 (VAIBHAV) Negative (Negative) COVID-19 Clin Com See Note Influenza Type A (ALPHONSO) (Negative) Influenza Type B (ALPHONSO) (Negative) Influenza A & B Note ECG Data Attestation: I personally reviewed and interpreted this ECG as follows: Prior ECG tracings: not available for review Interpretation: Sinus rhythm with a rate of 71. No ST elevation or depression. Normal QRS ax is. No ectopy. Discharge Plan Discharge Clinical Impression: Dyspnea Patient Disposition: Home, Self-Care Instructions: Dyspnea (ED) Additional Instructions: Follow-up with pulmonology as scheduled. Use the hydroxyzine as prescribed to see if that helps with yoursymptoms Prescriptions: New hydroxyzine HCl 25 mg tablet 25 mg PO TID PRN (Reason: anxiety) Qty: 20 0RF No Action prednisone 20 mg tablet 40 mg PO DAILY 5 Days Qty: 10 0RF tamsulosin 0.4 mg capsule 0.4 mg PO DAILY 5 Days Qty: 5 0RF morphine 15 mg tablet 15 mg PO Q6H PRN (Reason: pain) 3 Days Qty: 12 0RF ondansetron 4 mg tablet,disintegrating 4 mg PO Q8H PRN (Reason: nausea and vomiting) Qty: 20 0RF benzonatate 200 mg capsule 200 mg PO TID PRN (Reason: cough) Qty: 14 0RF prednisone 50 mg tablet 50 mg PO DAILY 4 Days Qty: 4 0RF Interventions: ED Discharge Assessment Last Done: 04/24/22 23:42 Discharge Date/Time: 04/24/22 23:43
[2022-04-24 22:09] VITALS: PULSE 67; RESP 16; O2SAT 98
[2022-04-24] MEDS: LORazepam 2 MG/ML VIAL 1 MG IVPUSH (22:11)
[2022-04-24 23:03] LABS: D Dimer High Sensitivity < 150 NG/ML
== END 2022-04-24 23:43 | disposition home or self-care (01) ==
PROVIDERS: Emergency Provider Emergency Medicine; PCP Family Medicine
DX: R06.00 Dyspnea, unspecified (principal); J45.909 Unspecified asthma, uncomplicated; Z20.822 Contact with and (suspected) exposure to COVID-19
CPT/HCPCS: 36415; 71045; 80053; 84484; 85025; 85379; 87502; 87635; 93005; 94640; 96374; 99284; J2060